=== PATIENT | female | born 1980 | race Caucasian/White ===

== ENCOUNTER → 2018-01-31 | Outpatient (CLI) | payer OTHER ==
[~2018-01-31] MED LIST: ACHYD1T PO; DCS100C PO; HYDR-3720 PO; HYDR-707 PO; Ibuprofen PO; LANS15CA PO; LORA5TAB9 PO; MGX400T PO; NITR100C3 PO; NORG1TAB; PREN-102 PO
== END ==
LOC: RAD 07:16
PROVIDERS: ATTEND Nurse Practitioner
DX: Z53.8 Procedure and treatment not carried out for other reasons (principal); M23.232 Derangement of other medial meniscus due to old tear or injury, left knee

== ENCOUNTER → 2018-02-05 | Outpatient (CLI) | payer OTHER ==
--- NOTE | 2018-02-05 09:39 | Diagnostic Imaging Report ---
EXAMINATION: Magnetic resonance imaging of the left knee without intravenous contrast DATE: February 05, 2018. COMPARISON: None. INDICATION: 37-year-old female, left knee pain. TECHNIQUE: Multiplanar, multisequence non contrast enhanced MR imaging was accomplished. FINDINGS: MENISCI: There is signal within the posterior horn of the medial meniscus which does not meet MRI criteria for tear. The lateral meniscus is intact. LIGAMENTS AND TENDONS: The anterior and posterior cruciate ligaments are intact. The medial collateral ligament is intact. The iliotibial band, mid third lateral capsular ligament, fibular collateral ligament, biceps femoris tendon and conjoined tendon are intact. The quadriceps tendon and patella ligament are intact. JOINT: The articular cartilage surfaces are intact. There is no knee joint effusion, prominent synovitis, or intra-articular body. BONE: There are areas of patchy low level T2 hyperintense signal in the distal femoral metaphysis and proximal tibial metaphysis that likely reflect foci of red marrow. There is no acute fracture, bone contusion, or evidence of osteonecrosis. BURSAE AND SOFT TISSUES: No Bakers cyst. IMPRESSION: 1. Signal within the posterior horn of the medial meniscus which does not meet MRI criteria for tear. 2. Intact lateral meniscus. 3. Intact anterior and posterior cruciate ligaments. Additional ligaments and tendons are intact. 4. Intact articular cartilage. No knee joint effusion or synovitis. 5. Patchy areas of T2 hyperintense marrow signal in the distal femoral metaphysis and proximal tibial metaphysis likely relating to areas of red marrow. No acute fracture, bone contusion, or evidence of osteonecrosis. Dictated by: Dictated on workstation # [id number]
== END ==
LOC: RAD 08:03
PROVIDERS: ATTEND Nurse Practitioner
DX: M23.232 Derangement of other medial meniscus due to old tear or injury, left knee (principal)
CPT/HCPCS: 73721

== ENCOUNTER → 2018-04-01 | Outpatient (CLI) | payer OTHER | LOC: RAD 13:55 | PROVIDERS: ATTEND Internal Medicine Interventional Cardiology | DX: I95.9 Hypotension, unspecified (principal); R00.0 Tachycardia, unspecified; R00.2 Palpitations; I49.3 Ventricular premature depolarization; Z53.8 Procedure and treatment not carried out for other reasons | CPT/HCPCS: 93306 ==

== ENCOUNTER 2023-02-24 18:58 | Emergency (ER) | payer OTHER ==
[~2023-02-24] VITALS: Ht 172.7 cm; Wt 83.9 kg
[2023-02-24] MEDS ORDERED: CYCLOBENZAPRINE 10 MG (FLEXERIL) TAB PO STA (19:04)
--- NOTE | 2023-02-24 19:06 | ED Back Pain ---
General Chief Complaint: Back Problems Stated Complaint: BACK SPASMS Source of Information: Patient, EMS Exam Limitations: No Limitations History of Present Illness Date Seen by Provider: Feb 24, 2023 Time Seen by Provider: 18:57 Initial Comments 43-year-old female presents to the emergency department today for back spasms on her left side. She states she had a gardening injury 20 years ago and has these back spasm episodes about 2-3 times a year. He is using naproxen at home without much relief. She typically goes to her primary doctor and gets Flexeril and hydrocodone which seemed to help with her symptoms. She denies any new or abnormal symptoms regarding her current pain. It is episodic in nature when her back spasms with specific movements. She denies any lower extremity weakness numbness or tingling. She denies any fevers or chills, new injuries. All other systems reviewed and negative except documented per HPI. Voice recognition software was used to help create this chart Allergies and Home Medications Allergies Uncoded Allergies: TAPE (Adverse Reaction, Mild, RASH, 08/31/14) CAN USE PAPER TAPE Patient Home Medication List Home Medication List Reviewed: Yes Docusate Sodium (Colace) 100 Mg Cap, 100 MG PO BID Prescribed by: PARESH NELSON on 08/31/141710 Hydrocodone Bit/Acetaminophen (Lorcet Plus 10/325 Mg) 1 Ea Tab, 1-2 EA PO Q4H PRN for PAIN Prescribed by: PARSEH NELSON on 08/31/141710 Loratadine (Claritin) 5 Mg Tab.rapdis, 5 MG PO DAILY, (Reported) Entered as Reported by: DIANA DC on 04/01/142143 Vits #93/Iron Fum/Fa ( Formula Tablet) 1 Each Tablet, 1 EACH PO DAILY, (Reported) Entered as Reported by: DIANA DC on 04/01/142143 [Ibuprofen] 800 MG TAB, 800 MG PO Q6HR Prescribed by: PARESH NELSON on 08/31/141710 Review of Systems Constitutional: see HPI Past Fgeibny-Gfgrue-Eneihd Hx Patient Social History Tobacco Use?: No Use of E-Cig and/or Vaping dev: No Substance use?: No Alcohol Use?: No Immunizations Up To Date Tetanus Booster (TDap): More than 5yrs PED Vaccines UTD: Yes Past Medical History Reproductive Disorders: Yes Female Reproductive Disorders: Endometriosis, Ovarian Cyst Sexually Transmitted Disease: No HIV/AIDS: No Loss of Vision: Denies Hearing Impairment: Denies Adverse Reaction/Blood Tranf: No Family Medical History Family history: Diabetes mellitus (FATHER ) 19 FATHER Family history: Hypertension (MOTHER/FATHER ) 19 FATHER 19 MOTHER Hypercholesterolemia (MOTHER ) 19 MOTHER Hypertension 19 FATHER 19 MOTHER Physical Exam Vital Signs Vital Signs - First Documented 02/24/23 19:00 Temp 37.3 Pulse 98 Resp 22 B/P (MAP) 134/83 (100) Pulse Ox 100 Capillary Refill : Height, Weight, BMI Height: 5'7.00" Weight: 189lbs. 2.0oz. [id number]; BMI Method: General Appearance: Moderate Distress (pain) HEENT: Normal ENT Inspection, Pharynx Normal Neck: Normal Inspection, Non Tender, Supple Cardiovascular: Regular Rate, Rhythm, No Murmur Respiratory: Chest Non Tender, Lungs Clear, Normal Breath Sounds, No Accessory Muscle Use, No Respiratory Distress Gastrointestinal: Normal Bowel Sounds, No Organomegaly, Non Tender, Soft Extremity: Normal Capillary Refill, Normal Inspection, Non Tender, No Calf Tenderness Neurologic/Psychiatric: Alert, Oriented x3, No Motor/Sensory Deficits, Normal Mood/Affect, clinical documentation clerk II-XII Norm as Tested Skin: Normal Color, Warm/Dry Progress/Results/Core Measures Results/Orders My Orders Orders - MORELIA VALENTIN DO Ketorolac Injection (Toradol Injection) (02/24/23 19:15) Cyclobenzaprine Tablet (Flexeril Tablet) (02/24/23 19:04) Medications Given in ED Current Medications Medications Dose Ordered Sig/Becca Route Start Time Stop Time Status Last Admin Dose Admin Ketorolac Tromethamine 30 mg ONCE ONCE IM 02/24/23 19:15 02/24/23 19:16 DC 02/24/23 19:10 30 MG Vital Signs/I&O 02/24/23 19:00 Temp 37.3 Pulse 98 Resp 22 B/P (MAP) 134/83 (100) Pulse Ox 100 Departure Communication (Admissions) Patient is hemodynamically stable with no red flag symptoms. No new injuries. He was treated with Flexeril, Toradol and discharged home in stable condition with same prescriptions. Impression Primary Impression: Back strain Qualified Codes: S39.012A - Strain of muscle, fascia and tendon of lower back, initial encounter Disposition: 01 HOME, SELF-CARE Condition: Stable Departure-Patient Inst. Referrals: WALLACE CRAIG MD (PCP/Family) Primary Care Physician Patient Instructions: Low Back Pain ED Add. Discharge Instructions: You are seen in the emergency department today for muscle spasms. I have prescribed you Toradol which is an anti-inflammatory medicine as well as some muscle relaxers to go home with. Increase your fluids at home. Your primary doctor should your symptoms persist. Return to the emergency department for any severe concerns. All discharge instructions reviewed with patient and/or family. Voiced understanding. Scripts Cyclobenzaprine HCl (Cyclobenzaprine HCl) 10 Mg Tablet 10 MG PO Q6H for Muscle Spasms for 5 Days, #20 TAB Prov: MORELIA VALENTIN DO 02/24/23 Ketorolac Tromethamine (Ketorolac Tromethamine) 10 Mg Tablet 10 MG PO TID for Pain for 3 Days, #9 TAB Prov: MORELIA VALENTIN DO 02/24/23 MORELIA VALENTIN DO Feb 24, 2023 19:06
[2023-02-24] MEDS ORDERED: KETOROLAC 30 MG/ML VIAL IM ONE (19:15)
[2023-02-24] MEDS ORDERED: KETO10TA PO (19:47)
[2023-02-24] MEDS ORDERED: CYCL10TA25 PO (19:47)
[2023-02-24] MEDS ORDERED: RX-CYCLOBENZAPRINE 10 MG (FLEXERIL) TAB PPK#3 PO ONE (20:00)
[2023-02-24 20:07] VITALS: BP 119/71
== END 2023-02-24 20:27 | disposition home or self-care (01) ==
LOC: EDUNIT# 18:58 → ER 19:00
DX: S39.012A Strain of muscle, fascia and tendon of lower back, initial encounter (principal); Z28.310 Unvaccinated for COVID-19; X58.XXXA Exposure to other specified factors, initial encounter
CPT/HCPCS: 99284